=== PATIENT | female | born 1975 | race American Indian/Alaskan Native ===

== ENCOUNTER 2019-06-28 14:10 | Emergency (ER) | payer MEDICAID ==
[~2019-06-28] VITALS: Ht 157.5 cm; Wt 106.0 kg
[2019-06-28 14:22] VITALS: BP 137/86
--- NOTE | 2019-06-28 15:30 | NUR ---
STANDBY ASSIST WITH PELVIC EXAM. SWAB COLLECTED AND SENT TO LAB. PT TOLERATES WELL.
[2019-06-28 15:37] LABS: URINE HCG NEGATIVE (NEG)
[2019-06-28 15:45] LABS: CLARITY,URINE SLIGHTLY CLOUDY (Clear); COLOR,URINE YELLOW (Yellow); GLUCOSE, URINE NEGATIVE (Neg); KETONES,URINE TRACE mg/dl (Neg); LEUKOCYTE ESTERASE ,URINE LARGE (Neg); NITRITES, URINE NEGATIVE (Neg); OCCULT BLOOD,URINE LARGE (Neg); PH,URINE 7.5 (4.8-8.0); PROTEIN,URINE TRACE mg/dl (Neg)
[2019-06-28] MEDS ORDERED: METR-159 PO (15:45)
[2019-06-28 15:50] LABS: UA COLLECTION TYPE STRAIGHT CATH
[2019-06-28] MEDS ORDERED: DOXY100C43 PO (15:51)
[2019-06-28] MEDS ORDERED: CefTRIAXone 1000mg IM Kit (w/lidocaine diluent) IM ONE (15:55)
[2019-06-28] MEDS ORDERED: azithromycin 250mg tablet PO ONE (15:55)
[2019-06-28 15:56] LABS: WBC,URINE 30-50 /HPF (0-4)
[2019-06-28 15:57] LABS: BACTERIA,URINE 1+ /HPF (Neg); SQUAMOUS EPITHELIAL CELL,UR MODERATE /LPF (FEW)
== END 2019-06-28 16:30 | disposition home or self-care (01) ==
LOC: ER 14:11
DX: N89.8 Other specified noninflammatory disorders of vagina (principal); Z79.899 Other long term (current) drug therapy
CPT/HCPCS: 36415; 81001; 81025; 87088; 87210; 87491; 87591; 96372; 99283; J0696; Q0112

== ENCOUNTER 2019-10-13 15:12 | Emergency (ER) | payer MEDICAID ==
[~2019-10-13] VITALS: Ht 157.5 cm; Wt 109.1 kg
[2019-10-13] MEDS ORDERED: acetaminophen 325mg tablet PO ONE (19:00)
[2019-10-13 19:18] VITALS: BP 140/82
== END 2019-10-13 19:20 | disposition home or self-care (01) ==
LOC: ER 15:12
DX: M25.561 Pain in right knee (principal); Z88.6 Allergy status to analgesic agent
CPT/HCPCS: 73560; 93926; 99284

== ENCOUNTER 2020-01-02 19:24 | Emergency (ER) | payer MEDICAID ==
[~2020-01-02] VITALS: Ht 157.5 cm; Wt 104.1 kg
[2020-01-02 19:37] VITALS: BP 116/62
== END 2020-01-02 20:18 | disposition home or self-care (01) ==
LOC: ER 19:26
DX: M79.642 Pain in left hand (principal); Z88.6 Allergy status to analgesic agent
CPT/HCPCS: 99281; 99282

== ENCOUNTER 2020-04-16 15:25 | Emergency (ER) | payer MEDICAID ==
[~2020-04-16] VITALS: Ht 157.5 cm; Wt 100.0 kg
[2020-04-16 16:27] VITALS: BP 158/81
== END 2020-04-16 16:25 | disposition home or self-care (01) ==
LOC: ER 15:25
DX: K62.89 Other specified diseases of anus and rectum (principal); Z90.49 Acquired absence of other specified parts of digestive tract; Z88.6 Allergy status to analgesic agent
CPT/HCPCS: 99281

== ENCOUNTER 2021-04-04 15:55 | Emergency (ER) | payer MEDICAID ==
[~2021-04-04] VITALS: Ht 157.5 cm; Wt 246.0 kg
[2021-04-04 16:46] LABS: COLOR,URINE YELLOW (Yellow); GLUCOSE, URINE NEGATIVE (Neg); KETONES,URINE NEGATIVE (Neg); LEUKOCYTE ESTERASE ,URINE TRACE (Neg); NITRITES, URINE NEGATIVE (Neg); OCCULT BLOOD,URINE SMALL (Neg); PH,URINE 5.5 (4.8-8.0); PROTEIN,URINE NEGATIVE (Neg); URINE HCG NEGATIVE (NEG); UROBILINOGEN,URINE 0.2 E.U/dL (0.2-1.0)
[2021-04-04 16:47] LABS: CLARITY,URINE SLIGHTLY CLOUDY (Clear); UA COLLECTION TYPE CLN CATCH MIDSTREAM
[2021-04-04 17:00] LABS: BACTERIA,URINE FEW /HPF (Neg); RBC,URINE 0-2 /HPF (0-2); SQUAMOUS EPITHELIAL CELL,UR FEW /LPF (FEW); WBC,URINE 0-4 /HPF (0-4)
[2021-04-04 17:05] LABS: BASOPHILS # (AUTO) 0.1 X10'3 (0-0.2); BASOPHILS % (AUTO) 0.9 % (0-1); EOSINOPHILS # (AUTO) 0.1 X10'3 (0-0.9); EOSINOPHILS % (AUTO) 1.7 % (0-6); HEMATOCRIT 38.2 % (35.0-45.0); HEMOGLOBIN 13.1 g/dl (12.0-16.0); LYMPHOCYTES % (AUTO) 41.3 % (21-51); MEAN CORPUSCULAR HEMOGLOBIN 29.5 PG (27.0-31.0); MEAN CORPUSCULAR HGB CONC 34.3 g/dL (33.0-36.5); MEAN CORPUSCULAR VOLUME 86.2 FL (78-98); MEAN PLATELET VOLUME 8.4 FL (7.4-10.4); MONOCYTES # (AUTO) 0.6 X10'3 (0-0.9); MONOCYTES % (AUTO) 8.7 % (2-12); NEUTROPHILS # (AUTO) 3.4 X10'3 (1.8-7.7); NEUTROPHILS % (AUTO) 47.4 % (42-75); PLATELET COUNT 229 X10'3 (140-440); RED BLOOD COUNT 4.43 X10'6 (4.20-5.60); WHITE BLOOD COUNT 7.2 X10'3 (4.5-11.0)
[2021-04-04 17:23] LABS: ALANINE AMINOTRANSFERASE 48 U/L (12-78); ALBUMIN 3.7 G/DL (3.4-5.0); ALBUMIN/GLOBULIN RATIO 1.1 (1.1-1.5); ALKALINE PHOSPHATASE 87 IU/L (46-116); ANION GAP 6 (8-16); ASPARTATE AMINO TRANSFERASE 27 U/L (10-37); BILIRUBIN,TOTAL 0.4 MG/DL (0.1-1.0); BLOOD UREA NITROGEN 13 MG/DL (7-18); BUN/CREATININE RATIO 17.1 (6.6-38.0); CALCIUM 8.6 MG/DL (8.5-10.1); CHLORIDE 109 MMOL/L (99-107); CREATININE 0.76 MG/DL (0.40-0.90); GLUCOSE 104 MG/DL (70-104); LIPASE 150 U/L (73-393); POTASSIUM 4.2 MMOL/L (3.5-5.1); SODIUM 143 MMOL/L (135-145); TOTAL CARBON DIOXIDE 27.7 MMOL/L (24-32); TOTAL PROTEIN 7.1 G/DL (6.4-8.2); eGFR 82 ML/MIN
[2021-04-04] MEDS ORDERED: CEPH-585 PO (19:36)
[2021-04-04 20:01] VITALS: BP 139/79
== END 2021-04-04 20:02 | disposition home or self-care (01) ==
LOC: ER 15:56
DX: N39.0 Urinary tract infection, site not specified (principal); Z88.6 Allergy status to analgesic agent
CPT/HCPCS: 36415; 80053; 81001; 81025; 83690; 85025; 87077; 87088; 87186; 99283

== ENCOUNTER 2022-06-01 11:22 | Emergency (ER) | payer MEDICAID ==
[~2022-06-01] VITALS: Ht 157.5 cm; Wt 121.0 kg
[2022-06-01 11:30] VITALS: BP 140/90
[2022-06-01] MEDS ORDERED: ketorolac trometh inj. 60 MG/2 ML VIAL IM ONE (12:15)
== END 2022-06-01 12:40 | disposition home or self-care (01) ==
LOC: ER 11:22
DX: M19.072 Primary osteoarthritis, left ankle and foot (principal); M25.572 Pain in left ankle and joints of left foot; G89.29 Other chronic pain; Z90.49 Acquired absence of other specified parts of digestive tract; Z79.82 Long term (current) use of aspirin
CPT/HCPCS: 73610; 73630; 96372; 99284; J1885

== ENCOUNTER 2022-08-06 15:26 | Emergency (ER) | payer MEDICAID ==
[~2022-08-06] VITALS: Ht 158.8 cm; Wt 120.5 kg
[2022-08-06 15:44] VITALS: BP 136/76
[2022-08-06] MEDS ORDERED: CEPH250T PO (17:26)
== END 2022-08-06 18:13 | disposition home or self-care (01) ==
LOC: ER 15:27
DX: L03.116 Cellulitis of left lower limb (principal); G89.29 Other chronic pain; Z88.6 Allergy status to analgesic agent; Z90.49 Acquired absence of other specified parts of digestive tract
CPT/HCPCS: 99283